=== PATIENT | female | born 1955 | race Caucasian/White ===

== ENCOUNTER → 2021-01-22 | Outpatient (CLI) | payer MEDICARE, OTHER ==
--- NOTE | 2021-01-22 16:05 | RAD ---
INDICATION: Screening for osteopenia/osteoporosis. Reason: SCREENING / Spl. Instructions: / History : . Postmenopausal evaluation COMPARISON: None. TECHNIQUE: Bone densitometry was performed through the lumbar spine and proximal femur. IMPRESSION: Lumbar Spine: BMD: 0.95 T-Score: -2.0 Range: Osteopenic Proximal Femur: BMD: 0.68 T-Score: -2.2 Range: Osteopenic World Health Organization Criteria for Bone Density: T-Score: > -1.0: Normal Range < -1.0 to -2.5: Osteopenic Range < -2.5: Osteoporotic Range Electronically signed by: Keshav Bowman MD (01/22/2021 4:03 PM) [id number]
--- NOTE | 2021-01-22 16:55 | RAD ---
BILATERAL DIGITAL SCREENING 2-D MAMMOGRAM INDICATION: Routine screening. COMPARISON: None available. Interpretation was made using CAD. FINDINGS: Breast Density: The breasts are heterogeneously dense, which may obscure small masses. RIGHT BREAST: No suspicious masses, calcifications or areas of architectural distortion are seen. [place] ign rim calcifications. LEFT BREAST: No suspicious masses, calcifications or areas of architectural distortion are seen. [place] gn rim calcifications. Partially visualized left Mediport hub. IMPRESSION: 1. No imaging evidence of malignancy. ASSESSMENT: BI-RADS 2: Benign. RECOMMENDATION: Routine annual screening mammogram. Your patient's mammogram demonstrates that she has dense breast tissue (breast density category C or D), which could hide abnormalities, and if she has other risk factors for breast cancer that have bee n identified, she might benefit from supplemental screening tests that may be suggested by you as her ordering physician. Dense breast tissue, in and of itself, is a relatively common condition. Therefo re, this information is not provided to cause undue concern, but rather to raise your awareness and t o promote discussion with your patient regarding the presence of other risk factors, in addition to d ense breast tissue. The facility will notify the patient of the results via mail. Patient information will be entered int o the mammography reminder system with a target recall date for the next mammogram. A reminder letter will be generated by the facility. Electronically signed by: Santino Conway MD (01/22/2021 4:53 PM) [id number]
== END ==
LOC: MAMMO 14:29
PROVIDERS: ATTEND Family Medicine
DX: Z12.31 Encounter for screening mammogram for malignant neoplasm of breast (principal); M85.89 Other specified disorders of bone density and structure, multiple sites
CPT/HCPCS: 77067; 77080